=== PATIENT | female | born 1950 | race Caucasian/White ===

== ENCOUNTER 2016-08-07 08:12 | Emergency (ER) | payer MEDICARE ==
[2016-08-07 10:17] LABS: ABSOLUTE BASOPHILS # (AUTO) 0.1 10^3/uL (0.0-0.2); ABSOLUTE EOSINOPHILS # (AUTO) 0.1 10^3/uL (0.0-0.6); ABSOLUTE LYMPHOCYTES (AUTO) 1.3 10^3/uL (0.5-4.7); ABSOLUTE NEUT (AUTO) 9.3 10^3/uL (1.7-8.2); BASOPHILS % (AUTO) 0.6 % (0-2); EOSINOPHILS % (AUTO) 1.2 % (0-6); HEMATOCRIT 45.7 % (36.0-47.0); HEMOGLOBIN 15.9 g/dL (12.0-15.5); LYMPHOCYTES % (AUTO) 11.2 % (13-45); MEAN CORPUSCULAR HEMOGLOBIN 30.3 pg (27.0-33.4); MEAN CORPUSCULAR HGB CONC 34.8 g/dL (32.0-36.0); MEAN CORPUSCULAR VOLUME 87 fl (80-97); MONOCYTES % (AUTO) 8.2 % (3-13); RED BLOOD COUNT 5.25 10^6/uL (3.72-5.28); RED CELL DISTRIBUTION WIDTH 13.2 % (11.5-14.0); SEGMENTED NEUTROPHILS % (AUTO) 78.8 % (42-78); WHITE BLOOD COUNT 11.8 10^3/uL (4.0-10.5)
[2016-08-07 10:37] LABS: ALANINE AMINOTRANSFERASE 31 U/L (9-52); ALBUMIN 4.4 g/dL (3.5-5.0); ALKALINE PHOSPHATASE 62 U/L (38-126); ANION GAP 14 (5-19); ASPARTATE AMINO TRANSFERASE 26 U/L (14-36); BILIRUBIN,TOTAL 0.8 mg/dL (0.2-1.3); BLOOD UREA NITROGEN 10 mg/dL (7-20); CALCIUM 9.8 mg/dL (8.4-10.2); CARBON DIOXIDE 34 mmol/L (22-30); CHLORIDE 91 mmol/L (98-107); CREATINE KINASE 73 U/L (30-135); CREATININE RESULT 0.66 mg/dL (0.52-1.25); GLUCOSE 149 mg/dL (75-110); SODIUM 138.7 mmol/L (137-145); TOTAL PROTEIN 7.3 g/dL (6.3-8.2)
[2016-08-07] MEDS ORDERED: CEFTRIAXONE 1 GM/D5W RTU 50 ML IV ONE (10:37)
[2016-08-07] MEDS ORDERED: AZITHROMYCIN INJ 500 MG VIAL IV ONE (10:37)
--- NOTE | 2016-08-07 10:37 | ER Document Report ---
ED Respiratory Problem - General Chief Complaint: Fever Stated Complaint: FEVER Mode of Arrival: Ambulatory Information source: Patient Notes: This is a 65-year-old female with a history of hypertension who presents to the emergency room with productive cough (thick bojorquez sputum), low-grade fever, right back pain on inspiration and shortness of breath. Patient states she started feeling sick a few days ago with a scratchy throat, losing her voice and a cough predominantly at night associated with low-grade fever. Patient states that she is started to get right thoracic back pain pain more with inspiration and increasing shortness of breath. TRAVEL OUTSIDE OF THE [place] IN LAST 30 DAYS: No - HPI Patient complains to provider of: Chest pain, Short of breath Onset: Just prior to arrival Duration: No: Better, Continuous, Gone now, Intermittent episodes, Worse/ persistent Initiating Event: No: Allergy, Aspiration/Choking, Exertion, Exposure to chemicals, Exposure to dust, Exposure to fumes, Exposure to mold, Exposure to smoke, Out of meds, Sports/exercise, URI, Other Quality of pain: Sharp Severity: None Pain Level: Denies Short of Breath: Mild Cough: Nonproductive Sputum amount: None At home treatment: denies: Bronchodilators, CPAP, Diuretics, Inhaled steroids, Oral steroids, Oxygen, Singulair, Theophylline EMS treatments: No: Bronchodilators, CPAP, Diuretics, Epinephrine, Nitrates, Oxygen, Solumedrol Associated symptoms: Chills, Congestion, Cough, Fever, Sinus pain/pressure Similar symptoms previously: No Recently seen / treated by doctor: No - Related Data Allergies/Adverse Reactions: codeine [Codeine] Adverse Reaction (Intermediate, Verified 08/07/16 08:25) TACHYCARDIA,ANXIOUS Past Medical History - General Information source: Patient - Social History Smoking Status: Unknown if Ever Smoked Cigarette use (# per day): No Chew tobacco use (# tins/day): No Frequency of alcohol use: None Drug Abuse: None Lives with: Family Family History: Reviewed & Not Pertinent Patient has suicidal ideation: No Patient has homicidal ideation: No - Past Medical History Cardiac Medical History: Reports: Hx Hypertension - MEDICATED Denies: Hx Heart Attack Pulmonary Medical History: Denies: Hx Asthma Neurological Medical History: Denies: Hx Cerebrovascular Accident, Hx Seizures Endocrine Medical History: Denies: Hx Diabetes Mellitus Type 1, Hx Diabetes Mellitus Type 2 Renal/ Medical History: Denies: Hx Peritoneal Dialysis GI Medical History: Denies: Hx Hepatitis, Hx Hiatal Hernia, Hx Ulcer Infectious Medical History: Denies: Hx Hepatitis Past Surgical History: Reports: Hx Cholecystectomy, Hx Orthopedic Surgery - herniated cervical disc, Hx Tonsillectomy, Hx Tubal Ligation. Denies: Hx Hysterectomy, Hx Mastectomy, Hx Open Heart Surgery, Hx Pacemaker - Immunizations Immunizations up to date: Yes Hx Diphtheria, Pertussis, Tetanus Vaccination: Yes Review of Systems - Review of Systems Constitutional: See HPI, Chills, Fever EENT: See HPI Cardiovascular: No symptoms reported Respiratory: See HPI Gastrointestinal: No symptoms reported Genitourinary: No symptoms reported Female Genitourinary: No symptoms reported Musculoskeletal: No symptoms reported Skin: No symptoms reported Hematologic/Lymphatic: No symptoms reported Neurological/Psychological: No symptoms reported Physical Exam - Vital signs Vitals: Temp Pulse Resp BP Pulse Ox 99.0 F 88 18 122/59 L 91 L 08/07/16 08:27 08/07/16 08:27 08/07/16 08:27 08/07/16 08:27 08/07/16 08:27 Notes: Physical exam: GENERAL: 65-year-old female, alert and oriented 3, no acute distress. HEAD: Atraumatic, normocephalic. EYES: Pupils equal round and reactive to light, extraocular movements intact, sclera anicteric, conjunctiva are normal. ENT: TMs normal, nares patent, oropharynx clear without exudates. Moist mucous membranes. NECK: Normal range of motion, supple without lymphadenopathy or JVD. LUNGS: Breath sounds clear to auscultation bilaterally and equal. No wheezes rales or rhonchi. HEART: Regular rate and rhythm without murmurs, rubs or gallops. ABDOMEN: Soft, nontender, normoactive bowel sounds. No guarding, no rebound. No masses appreciated. EXTREMITIES: Normal range of motion, no pitting or edema. No clubbing or cyanosis. NEUROLOGICAL: Cranial nerves II through XII grossly intact. Normal speech, normal gait. PSYCH: Normal mood, normal affect. SKIN: Warm, Dry, normal turgor, no rashes or lesions noted. Course - Re-evaluation Re-evalutation: 08/07/16 13:17 Note: Patient does symptomatically feel better after albuterol and Atrovent nebulizer the ER. She does not appear to be in any respiratory distress. I have noticed, that when we have a good waveform with pulse oximetry, her oxygen saturation is in the 96 range on room air. Given her pleuritic type right- sided chest pain, a CTA of the chest was done and it does not show any evidence of pulmonary embolus. Patient does have symptoms suggestive of an infectious process and she was given IV ceftriaxone and IV azithromycin while we were waiting for her workup in the ER. The CT does not show a definitive pneumonia. However, I will place her on antibiotics given that she does appear to have a respiratory infection. - Vital Signs Vital signs: Temp Pulse Resp BP Pulse Ox 99.0 F 88 18 101/71 96 08/07/16 08:27 08/07/16 08:27 08/07/16 13:01 08/07/16 13:01 08/07/16 13:01 - Laboratory Result Diagrams: 08/07/16 09:55 08/07/16 09:55 Laboratory results interpreted by me: 08/07/16 08/07/16 09:55 09:55 WBC 11.8 H Hgb 15.9 H Seg Neutrophils % 78.8 H Lymphocytes % 11.2 L Absolute Neutrophils 9.3 H Potassium 2.8 L* Chloride 91 L Carbon Dioxide 34 H Glucose 149 H - Diagnostic Test Radiology reviewed: Image reviewed, Reports reviewed - I've seen the radiology report and I reviewed the films. The official radiology report is that there is no infiltrates. I believe there may be a developing right lower lobe infiltrate on the x-ray which would be consistent with the patient's symptoms. - EKG Interpretation by Me Rate: Normal Rhythm: NSR - EKG shows normal sinus rhythm with a ventricular rate of 82, no acute ST-T wave changes Discharge - Discharge Clinical Impression: bronchitis with bronchospasm Condition: Stable Disposition: HOME, SELF-CARE Instructions: Bronchitis With Bronchospasm (Wheezing) (OM) Additional Instructions: Recommendations: Rest, drink plenty of fluids, take the antibiotics as prescribed: Start tomorrow , you were given today's dose in the ER. Hold off on the probiotics and fluconazole until after completion of the antibiotics. Mucinex feth-pgg-lehglfz make provide some relief. Use the inhaler: 2 puffs every 4-6 hours for needed (it doesn't seem to be helping, stop it). Follow-up with a primary care doctor: Recommendations: It is recommended to followup with a primary care doctor within the next 2 days. If you do not have a primary care doctor or you are unable to get an apointment during that time, I left the number for some internal medicine physicians that are affiliated with this special care hospital. Dr. Courtney Cabrera [address], [place] [address] [phone] Dr Stout Address: [address] [place] [address] , [place] [address] Return to the emergency room for worsening pain, worsening shortness of breath or any insensate to getting worse. I would rather see you earlier in the emergency room and heavy weight at home. Prescriptions: Azithromycin [Zithromax 250 mg Tablet] 250 mg PO ASDIR PRN #6 tablet PRN Reason:
[2016-08-07] MEDS ORDERED: IPRATROPIUM/ALBUTEROL 0.5-2.5 MG/3 ML AMPUL NEB ONE (10:38)
[2016-08-07 10:39] LABS: POTASSIUM 2.8 mmol/L (3.6-5.0)
[2016-08-07 10:40] LABS: PROTHROMBIN TIME 12.3 SEC (11.4-15.4)
[2016-08-07] MEDS ORDERED: POTASSIUM CHLORIDE 10 MEQ TABLET.SA PO ONE (10:40)
[2016-08-07 10:49] LABS: CREATINE KINASE MB 0.29 ng/mL (<4.55)
[2016-08-07 10:52] LABS: TROPONIN I < 0.012 ng/mL
[2016-08-07] MEDS ORDERED: ALBUTEROL SULFATE HFA (90 MCG/PUFF) 8 GM MDI (1 MDI/ER DISP) IH PRN (13:22)
[2016-08-07 13:25] VITALS: BP 101/71
--- NOTE | 2016-08-08 00:10 | EKG REPORT ---
SEVERITY:- OTHERWISE NORMAL ECG - SINUS RHYTHM BORDERLINE LEFT AXIS DEVIATION : Confirmed by: Thania Matthews 08-Aug-2016 00:09:28
== END 2016-08-07 13:25 | disposition home or self-care (01) ==
LOC: ER 08:12
DX: J40 Bronchitis, not specified as acute or chronic (principal); J98.01 Acute bronchospasm; R50.9 Fever, unspecified; I10 Essential (primary) hypertension; R05 Cough; R06.02 Shortness of breath; R09.89 Other specified symptoms and signs involving the circulatory and respiratory systems; M54.6 Pain in thoracic spine; R07.81 Pleurodynia; J34.89 Other specified disorders of nose and nasal sinuses
CPT/HCPCS: 93005; 94640; 99284; 96365; 96367; 36415; 87040; 87070; 82553; 87880; 82550; 85025; 85610; 80053; 84484; 87804; 71010; 71275; 93010; J0456; A9270 ×2; J0696; J3490; J7620

== ENCOUNTER 2017-02-06 08:52 | Day surgery (SDC) | payer MEDICARE ==
[~2017-02-06 08:52] MED LIST: BUPIVACAINE HCL 0.75% INJ/PF (7.5 MG/1 ML) 10 ML SDV OD PRN; KETOROLAC TROMETHAMINE 0.45% 4 DROP/0.4 ML DROPERETTE OD PRN; LIDOCAINE 4% INJ/PF (40 MG/ML) 5 ML AMPUL OD PRN; TETRACAINE HCL 0.5% OPH SOLN 0.6 ML DROPERETTE OD PRN
[2017-02-06] MEDS ORDERED: EPINEPHRINE INJ/PF 1 MG/1 ML AMPULE ONE (08:58)
[2017-02-06] MEDS ORDERED: CHONDR SU A NA/HYALUR INTRAOC KIT (SURGICARE) ONE (08:58)
[2017-02-06] MEDS: BESIFLOXACIN HCL 0.6% OPH SUSP 5 ML BOTTLE OD PRN ×4 (09:34→10:45)
[2017-02-06] MEDS: CYCLOPENTOLATE 0.2%/PHENYLEPHRINE 1% OPH SOLN 2 ML OD PRN ×3 (09:34→09:54)
[2017-02-06] MEDS: TROPICAMIDE 1% OPH SOLN 3 ML OD PRN ×3 (09:34→09:54)
[2017-02-06] MEDS: LIDOCAINE 3.5% OPH GEL/PF 1 ML/TUBE OD PRN ×2 (09:35→09:54)
[2017-02-06] MEDS ORDERED: FENTANYL CITRATE INJ/PF 100 MCG/2 ML AMPUL ONE (09:56)
[2017-02-06] MEDS ORDERED: ONDANSETRON HCL INJ/PF 4 MG/2 ML SDV ONE (09:56)
[2017-02-06] MEDS ORDERED: MIDAZOLAM 2 MG/2 ML INJ ONE (09:56)
--- NOTE | 2017-02-06 11:38 | [facility] OPERATIVE REPORT E ---
[facility] Operative Report NAME: SHARIF BRITO AGE: 66Y DATE OF SURGERY: 02/06/2017 ROOM: PREOPERATIVE DIAGNOSIS: Cataract, right eye. POSTOPERATIVE DIAGNOSIS: Cataract, right eye. PROCEDURE PERFORMED: Phacoemulsification with posterior chamber intraocular lens, right eye. SURGEON: CAROL CHRISTINE M.D. ANESTHESIA: Topical with MAC. INDICATIONS FOR SURGERY: Difficulty reading small print and difficulty driving at night. Best corrected visual acuity 20/40. DESCRIPTION OF PROCEDURE: The patient was brought to the Operating Room and placed on the operative table. Following tetracaine drops, topical anesthesia was administered. This consisted of instrument wipe pledgets soaked in a solution of 4% Xylocaine mixed with 0.75% Marcaine in a 1:2 ratio. A 2 x 1 cm pledget was placed in the superior fornix. A 1 x 1 cm pledget was placed in the inferior fornix. The eye was patched shut for 5 minutes. The patch was removed. The eye was sterilely prepped and draped in the usual manner. Lid speculum was placed in the eye. The pledgets were removed. 4-0 black silk sutures were placed around the superior and the inferior rectus muscles to be used as traction. A conjunctival peritomy was made at the 10 o'clock position. Hemostasis was obtained with bipolar cautery. A posterior limbal groove was created using a crescent knife and dissected anteriorly towards the cornea. A sharp point blade was used to create a paracentesis site at the 2 o'clock position. A 2.4 mm keratome was used to enter the anterior chamber through the groove. Viscoelastic was injected into the anterior chamber. An anterior capsulotomy was performed using Utrata forceps in a capsulorrhexis fashion. Hydrodissection and hydrodelineation were performed. Phacoemulsification was performed in jbhser-cgf-afbfuhs technique. A total of 51 seconds phaco time was used. Following this, the I/A unit was used to remove residual cortex. Viscoelastic was injected into the capsular bag. Intraocular lens model SN60WF, 19.5 diopters, serial number [id number] was placed in the capsular bag. The I/A unit was used to remove residual viscoelastic. The wound was seen to be watertight under high and low pressure, and no sutures were placed. The intraocular lens was well centered. The pressure was adjusted in the eye to normal pressure. The 4-0 black silk sutures and lid speculum were removed. The eye was shielded after Besivance drops were placed. The patient tolerated the procedure well and was sent to the Recovery Room in good condition. DICTATING PHYSICIAN: CAROL CHRISTINE M.D. [id number] PHY#: [id number] ID: [id number] JOB#: [id number] ACCT: [id number] cc:CAROL CHRISTINE M.D. >
--- NOTE | 2017-02-06 11:43 | [facility] DISCHARGE SUMMARY E ---
[facility] Discharge Summary NAME: SHARIF BRITO AGE: 66Y ADMITTED: 02/06/2017 DISCHARGED: 02/06/2017 HOSPITAL COURSE: The patient is a 66-year-old lady who underwent uneventful cataract extraction with intraocular lens implant, right eye, on 02/06/2017. She will be discharged to home. She is instructed to resume preoperative medications, take Tylenol as needed for discomfort, to keep her eye shielded, to use Besivance, and Ilevro at 3 p.m. and 8 p.m., and to follow up in my office in 1 day. DICTATING PHYSICIAN: CAROL CHRISTINE M.D. [id number] PHY#: [id number] ID: [id number] JOB#: [id number] ACCT: [id number] cc:CAROL CHRISTINE M.D. >
== END 2017-02-06 11:25 | disposition home or self-care (01) ==
LOC: SC 08:52
PROVIDERS: ATTEND Ophthalmology
PROC: 08RJ3JZ Replacement of Right Lens with Synthetic Substitute, Percutaneous Approach (ICD-10-PCS; principal; 2017-02-06 09:30)
DX: H25.813 Combined forms of age-related cataract, bilateral (principal); H16.223 Keratoconjunctivitis sicca, not specified as Sjogren's, bilateral; H02.831 Dermatochalasis of right upper eyelid; H02.834 Dermatochalasis of left upper eyelid; I10 Essential (primary) hypertension; Z79.899 Other long term (current) drug therapy; Z88.5 Allergy status to narcotic agent
CPT/HCPCS: 66984; V2632; J2250; J3490 ×3; A9270 ×2; J0171; J3010; J2405; 142

== ENCOUNTER → 2017-04-17 | Outpatient (CLI) | payer MEDICARE ==
--- NOTE | 2017-04-17 16:02 | WOMENS IMAGING REPORT ---
EXAM DESCRIPTION: BONE DENSITY HIP/SPINE COMPLETED DATE/TIME: 04/17/2017 9:47 am REASON FOR STUDY: OSTEOPOROSIS M81.0 AGE-RELATED OSTEOPOROSIS W/O CURRENT PATHOLOGICAL FRAC COMPARISON: None. TECHNIQUE: Dual-Energy X-ray Absorptiometry (DEXA) of the AP Spine and Hip. LIMITATIONS: None. FINDINGS: LUMBAR SPINE: The bone mineral density (BMD) measured from L1-L4 in the AP projection correlates with a T-score of 1.7, which is normal as defined by the World Health Organization. HIP: The bone mineral density (BMD) measured in the left hip correlates with a T-score of 1.8 in the femor al neck, which is normal as defined by the World Health Organization. IMPRESSION: 1. LUMBAR SPINE: NORMAL. 2. HIP: NORMAL. COMMENT: The World Health Organization defines low BMD as follows: T-score: Normal: Greater than -1.0 Osteopenia: Between -1.0 and -2.5 Osteoporosis: Less than -2.5 without fractures Established osteoporosis: Less than -2.5 with fractures In general, you may wish to consider: Diagnosis Treatment Follow-up DEXA Normal BMD Prevention 2-3 years Osteopenia Prevention/Therapy 1-2 years Osteoporosis Therapy Yearly TECHNICAL DOCUMENTATION: JOB ID: [id number]- All Rights Reserved
== END ==
LOC: WI 09:14
PROVIDERS: ATTEND Physician Assistant
DX: M81.0 Age-related osteoporosis without current pathological fracture (principal)
CPT/HCPCS: 77080

== ENCOUNTER → 2017-05-07 | Outpatient (CLI) | payer MEDICARE ==
--- NOTE | 2017-05-07 14:55 | RADIOLOGY REPORT (SQ) ---
EXAM DESCRIPTION: HIP LEFT AP/LATERAL COMPLETED DATE/TIME: 05/07/2017 12:20 pm REASON FOR STUDY: SCIATICA, LEFT SIDE M54.32 SCIATICA, LEFT SIDE COMPARISON: None. NUMBER OF VIEWS: Two views. TECHNIQUE: AP pelvis and additional frog-leg view of the left hip. LIMITATIONS: None. FINDINGS: MINERALIZATION: Normal. LEFT HIP: No fracture or dislocation. No worrisome bone lesions. RIGHT HIP: No fracture or dislocation. No worrisome bone lesions. PUBIS AND ISCHIUM: No fracture. PELVIS: No fracture. SACRUM: No fracture or dislocation. No worrisome bone lesions. LOWER LUMBAR SPINE: No fracture or dislocation. No worrisome bone lesions. No significant disc disea se. SOFT TISSUES: No findings. OTHER: No other significant finding. IMPRESSION: NEGATIVE STUDY OF THE LEFT HIP AND PELVIS. NO RADIOGRAPHIC EVIDENCE OF ACUTE INJURY. TECHNICAL DOCUMENTATION: JOB ID: [id number] [employer]- All Rights Reserved
== END ==
LOC: OD 11:46
PROVIDERS: ATTEND Physician Assistant
DX: M54.32 Sciatica, left side (principal)

== ENCOUNTER → 2017-09-06 | Outpatient (CLI) | payer MEDICARE | LOC: OD 15:52 | PROVIDERS: ATTEND Otolaryngology | DX: J39.0 Retropharyngeal and parapharyngeal abscess (principal) | CPT/HCPCS: 36415; 82785; 86003 ==

== ENCOUNTER → 2017-10-31 | Outpatient (CLI) | payer MEDICARE ==
--- NOTE | 2017-10-31 11:19 | RADIOLOGY REPORT (SQ) ---
EXAM DESCRIPTION: CT SINUSES FOR ENT COMPLETED DATE/TIME: 10/31/2017 10:05 am REASON FOR STUDY: J01.91 ACUTE RECURRENT SINUSITIS, UNSPECIFIED J01.91 ACUTE RECURRENT SINUSITIS, U NSPECIFIED COMPARISON: None. TECHNIQUE: Noncontrast scanning through the paranasal sinuses using bone algorithm. Reconstructed MPR images reviewed. All images stored on PACS. Images acquired for image guided surgery. All CT scanners at this facility use dose modulation, iterative reconstruction, and/or weight based d osing when appropriate to reduce radiation dose to as low as reasonably achievable (ALARA). [facility]: Dose Right [facility]: CareDose [facility]: Dose Right [facility]: Teradose 4D [facility]: eShares RADIATION DOSE: 46 mGy. FINDINGS: NASAL PASSAGES: Clear. No polyps or masses. OSTEOMEATAL UNITS AND NASOFRONTAL DUCTS: Patent. Small bilateral agger nasi cells. Mucous membrane t hickening left maxillary sinus outlet on coronal images 100 to 108 MAXILLARY SINUSES: Well pneumatized. Mucous membrane thickening along the floor of the right and lef t maxillary sinuses. Right maxillary sinus outlet is patent. Mucous membrane thickening narrows the left maxillary sinus outlet ETHMOID SINUSES: Mild mucous membrane thickening in the bilateral whole ethmoid air cells left greate r than right. There is medial bowing of the left medial orbital wall on coronal images 110 through 1 26. SPHENOID SINUSES: Well-pneumatized and clear. No sphenoethmoid air cells or pneumatized pterygoid rec ess. No pneumatized dorsal sella. FRONTAL SINUSES: Bilateral pneumatization. Right frontal sinus is clear. Circumferential mucous mem brane thickening with air-fluid level left frontal sinus MASTOID AIR CELLS: Clear. ORBITS: Normal and symmetrical. NASAL SEPTUM: Midline. No nasal septal spurs. TEMPOROMANDIBULAR JOINTS: Joint space narrowing with bony spurring TURBINATES: Pneumatized right middle turbinate MUCOPERIOSTEAL THICKENING: No. MUCOCELE: No. OTHER: No other significant findings. IMPRESSION: Inflammatory changes in the paranasal sinuses as above. TECHNICAL DOCUMENTATION: JOB ID: [id number] Quality ID # [id number]: Final reports with documentation of one or more dose reduction techniques (e.g., Au tomated exposure control, adjustment of the mA and/or kV according to patient size, use of iterative reconstruction technique) 2010 [employer]- All Rights Reserved Reading location - IP/workstation name: [email or web address]
== END ==
LOC: RAD 10:48
PROVIDERS: ATTEND Otolaryngology
DX: J01.91 Acute recurrent sinusitis, unspecified (principal)
CPT/HCPCS: 70486

== ENCOUNTER 2018-03-19 06:35 | Day surgery (SDC) | payer MEDICARE ==
--- NOTE | 2018-03-15 19:20 | EKG REPORT ---
SEVERITY:- NORMAL ECG - SINUS RHYTHM : Confirmed by: Clayton Scott MD 15-Mar-2018 19:19:00
[2018-03-19] MEDS ORDERED: ONDANSETRON HCL INJ/PF 4 MG/2 ML SDV ONE (06:36)
[2018-03-19] MEDS ORDERED: CARBOXYMETHYLCELLULOSE SOD 0.5% 0.4 ML DROPERETTE ONE (06:36)
[2018-03-19] MEDS ORDERED: FENTANYL CITRATE INJ/PF 100 MCG/2 ML AMPUL ONE ×3 (06:37→11:52)
[2018-03-19] MEDS ORDERED: MIDAZOLAM 2 MG/2 ML INJ ONE (06:37)
[2018-03-19] MEDS ORDERED: DEXAMETHASONE SOD PHOS INJ 10 MG/1 ML VIAL ONE (06:37)
[2018-03-19] MEDS ORDERED: PROPOFOL INJ 200 MG/20 ML VIAL IV ONE (06:38)
[2018-03-19] MEDS ORDERED: ROCURONIUM BROMIDE INJ 50 MG/5 ML VIAL IV ONE (06:39)
[2018-03-19] MEDS ORDERED: SUCCINYLCHOLINE CHLORIDE INJ 200 MG/10 ML VIAL ONE (06:39)
[2018-03-19] MEDS ORDERED: DIPHENHYDRAMINE HCL 50 MG/ML VIAL ONE (06:40)
[2018-03-19] MEDS ORDERED: DEXMEDETOMIDINE INJ 80 MCG/20 ML VIAL IV ONE (06:40)
[2018-03-19] MEDS ORDERED: SCOPOLAMINE HYDROBROMIDE 1.5 MG PATCH.TD72 TD PRN (07:26)
[2018-03-19] MEDS ORDERED: MINERAL OIL (STERILE) 10 ML VIAL ONE (07:32)
[2018-03-19] MEDS ORDERED: BUPIVACAINE HCL 0.5%-EPI 1:200000 INJ/PF 30 ML VIAL ONE (07:32)
[2018-03-19] MEDS ORDERED: CEFAZOLIN 2 GM/D5W RTU 2 GM/50 ML RTUPB IV PRN (07:32)
[2018-03-19] MEDS ORDERED: OXYMETAZOLINE HCL 0.05% NASAL SPRAY 15 ML BOTTLE ONE (07:33)
[2018-03-19] MEDS ORDERED: BUPIVACAINE HCL 0.5%/EPI 1:200000 INJ 1.8 ML CARTRIDGE ONE ×2 (07:33→08:10)
[2018-03-19] MEDS ORDERED: RINGERS SOLUTION,LACTATED 1,000 ML IV PRN (07:35)
[2018-03-19] MEDS ORDERED: OXYCODONE-ACETAMINOPHEN 5-325 MG TABLET ONE (14:52)
--- NOTE | 2018-04-02 11:25 | [facility] OPERATIVE REPORT E ---
[facility] Operative Report NAME: SHARIF BRITO AGE: 67Y DATE OF SURGERY: 03/19/2018 ROOM: PREOPERATIVE DIAGNOSES: 1. Acute recurrent sinusitis. 2. Chronic rhinosinusitis. 3. Nasal septal deviation, acquired. 4. Nasal deformities, acquired. 5. Chronic nasal dyspnea. 6. Middle turbinate hypertrophy. 7. Bilateral inferior turbinate hypertrophy. 8. Bilateral chronic eustachian tube dysfunction. POSTOPERATIVE DIAGNOSES: 1. Acute recurrent sinusitis. 2. Chronic rhinosinusitis. 3. Nasal septal deviation, acquired. 4. Nasal deformities, acquired. 5. Chronic nasal dyspnea. 6. Middle turbinate hypertrophy. 7. Bilateral inferior turbinate hypertrophy. 8. Bilateral chronic eustachian tube dysfunction. OPERATIONS PERFORMED: 1. Image guidance functional endoscopic sinus surgery via bilateral rigid transnasal surgical endoscopy as follows. 2. Left maxillary antrostomy via left transnasal and intranasal rigid surgical endoscopy. 3. Left total ethmoidectomy (anterior and posterior ethmoidectomy) via left transnasal and intranasal rigid surgical endoscopy. 4. Left transnasal/intranasal frontal sinus sinusotomy via rigid transnasal surgical endoscopy. 5. Left sphenoid balloon Sinuplasty via left rigid transnasal surgical endoscopy. 6. Bilateral eustachian tube balloon plasty via bilateral rigid transnasal surgical endoscopy. 7. Closed/endonasal septorhinoplasty with cartilage grafting of the lower lateral cartilages bilateral. 8. Bilateral inferior turbinate reduction using a submucous resection technique. 9. Bilateral middle turbinate reductions via bilateral transnasal rigid surgical endoscopy. SURGEON: RORO SPARROW D.O. FINDINGS: 1. Nasal septal deviation involving bone and cartilage. 2. Significant/severe bilateral nasal valve collapse/inefficiency. 3. Nasal deformities acquired involving the bony and cartilaginous nasal structures/component. 4. Bilateral inferior turbinate hypertrophy. 5. Bilateral middle turbinate hypertrophy. 6. Left sinonasal polyps were noted during the course of performing the sinus surgery, and there was thick left maxillary sinus contents that were suctioned. 7. The lower lateral cartilages were cephalically sweeping in their position and their over composition was noted to be weakened. INDICATIONS: This is a 67-year-old white female patient who has been seen, evaluated, and followed in the [facility] office. The patient had been initially referred for and she complained of the history of severe acute sinusitis symptoms, being treated with multiple courses of antibiotics. The patient also complained of a longstanding history of nasal dyspnea over the years. She continued to have recurrent sinusitis difficulty with additional courses of antibiotics being required for management. The patient was experiencing severe sinus pain and pressure predominantly affecting the left side of her head and sinuses. The patient underwent clinic endoscopy and CT sinus imaging. After extensive discussion with the patient, recommendation and plan was made to proceed with left-sided sinus surgery to address the maxillary, total ethmoid distribution (anterior and posterior ethmoids), sphenoid sinus, frontal sinus, and eustachian tube complexes. In addition, to address the nasal dysfunction was to perform endonasal/closed septorhinoplasty with cartilaginous grafting and inferior and middle turbinate reduction. The patient voiced an understanding of all that was discussed and desired to proceed. The procedures and all of their risks and complications were all discussed in detail with the patient. She voiced an understanding of the described surgical plan, agreed to proceed, and consent was obtained. DESCRIPTION OF PROCEDURE: The patient was taken to the main operating room and was placed on the operating room table in the supine position. Appropriate monitors were placed. Using mask and IV access, general anesthesia was induced. The patient was then transorally intubated without difficulty. The patient was positioned and prepped for nasal and sinus surgery. The image guidance system was set up and tested appropriately before beginning the case. The patient underwent a nasal examination with injection of local anesthetic with epinephrine to establish a nasal block. Two Afrin-soaked neuro patties were placed per nasal passage. At this point, the patient was prepped and draped in the usual fashion for nasal and sinus surgery. The Afrin-soaked neuro patties were next removed. The patient underwent a hemitransfixion incision with elevation of the mucoperichondrial and mucoperiosteal flaps without difficulty. The bony cartilaginous junction was identified and divided and the most deviated portions of septal cartilage and bone were removed. There was also a maxillary prep/septal spur that was removed without difficulty using a V-chisel. There was a greater than 1.5 x 1.5 cm cartilaginous L-strut that was also preserved. At this point, the turbinate bipolar wand was used to make 2 passes in each inferior turbinate followed by use of a Babak elevator to outfracture each inferior turbinate. The turbinate microdebrider system at a setting of 1500 RPM was also used to perform submucous resection on each side without difficulty. At this point, the functional endoscopic sinus surgery was addressed in the following manner. There was transnasal rigid surgical endoscopy used throughout the case. Along with surgical sinus instrumentation, the balloon Sinuplasty systems, the microdebrider system at a setting of 3000 RPM, and Propel steroid-eluting stents, the sinus surgery portion of the case was addressed in the following fashion: At this point, the eustachian tube balloon plasty was performed on each side via rigid transnasal surgical endoscopy with the balloon being inserted into each eustachian tube distribution and the balloon was inflated to 12 atmospheres and held in place for 2 minutes per side. This balloon system was next withdrawn without difficulty. Under direct rigid surgical endoscopic visualization, the left maxillary antrostomy and total ethmoidectomies were performed without difficulty. The left frontal sinusotomy was performed without difficulty as well in a transnasal/intranasal fashion. Once these procedures were complete, there was one Propel contour stent placed into the frontal sinus distribution and one Propel ethmoid stent placed in the ethmoid distribution. At this point, there were 2 Afrin-soaked neuro patties placed per nasal passage. At this point, the image guidance sphenoid balloon system was introduced to perform the intranasal/transnasal balloon sphenoidotomy/dilation with the balloon inflated to 12 atmospheres in 2 different positions. At this point, the rigid endoscope and sphenoid balloon system was withdrawn from the patient's nose. Surgical sinus instrumentation was also used under direct visualization to perform a left middle turbinate reduction and a right middle turbinate reduction was performed as well under direct visualization with the use of the Shruti clamp to infracture the middle turbinate component. At this point, the rhinoplasty portion of the case was addressed in the following manner. There were modified marginal incisions that were performed with elevation of the skin soft tissue envelope to create precise pockets for extended alar back grafts. The lower lateral cartilages were also dissected free from the surrounding tissue. These cartilages were noted to be cephalically sweeping and weakened in their overall composition. At this point, cartilage that had been previously removed was fashioned into extended alar back grafts and contoured. These grafts were overlapped with the existing components of the lower lateral cartilages and fixed in place with 6-0 Prolene suture in multiple locations. This construct was then inserted into a more caudal position in a precise pocket. This complex was also fixed in position with [id number] 5-0 Prolene suture with Telfa patties overlying the internal and external tissue components. There were 2 stabilization sutures placed per side. Once complete, the nose was thoroughly suctioned and there was reasonable hemostasis noted. Cartilage that had been previously removed was placed back . END OF DICTATION DICTATING PHYSICIAN: RORO SPARROW D.O. [id number] PHY#: [id number] ID: [id number] JOB#: [id number] ACCT: [id number] cc:RORO SPARROW D.O. >
== END 2018-03-19 15:36 | disposition home or self-care (01) ==
LOC: SC 06:35
PROVIDERS: ATTEND Otolaryngology
DX: H69.83 Other specified disorders of Eustachian tube, bilateral (principal); J32.8 Other chronic sinusitis; J30.9 Allergic rhinitis, unspecified; J34.89 Other specified disorders of nose and nasal sinuses; R06.09 Other forms of dyspnea; J34.3 Hypertrophy of nasal turbinates; J32.9 Chronic sinusitis, unspecified; I10 Essential (primary) hypertension; E66.9 Obesity, unspecified; Z85.828 Personal history of other malignant neoplasm of skin; Z68.39 Body mass index [BMI] 39.0-39.9, adult; Z88.5 Allergy status to narcotic agent; Z79.899 Other long term (current) drug therapy
CPT/HCPCS: 30140; 30420; 31255; 31256; 31276; 31297; C9745; 160; 93005; 93010; J0330; J0690; J1100; J1200; J2250; J2405; J2704; J3010; J3490

== ENCOUNTER 2019-07-22 10:17 | Day surgery (SDC) | payer MEDICARE ==
[~2019-07-22 10:17] MED LIST changes: +BALANCED SALT IRRIG SOLN COMB2 15 ML BOTTLE ONE; -BUPIVACAINE HCL 0.75% INJ/PF (7.5 MG/1 ML) 10 ML SDV OD PRN; -KETOROLAC TROMETHAMINE 0.45% 4 DROP/0.4 ML DROPERETTE OD PRN; -LIDOCAINE 4% INJ/PF (40 MG/ML) 5 ML AMPUL OD PRN; +POVIDONE-IODINE 5% OPH PREP SOLN 30 ML ONE; -TETRACAINE HCL 0.5% OPH SOLN 0.6 ML DROPERETTE OD PRN; +TETRACAINE HCL 0.5% OPH SOLN 4 ML ONE
[2019-07-22] MEDS ORDERED: FENTANYL CITRATE INJ/PF 100 MCG/2 ML AMPUL ONE ×2 (10:26→11:48)
[2019-07-22] MEDS ORDERED: MIDAZOLAM 2 MG/2 ML INJ ONE ×2 (10:26→11:48)
[2019-07-22] MEDS ORDERED: ONDANSETRON HCL INJ/PF 4 MG/2 ML SDV ONE (10:26)
[2019-07-22] MEDS ORDERED: PROPOFOL INJ 200 MG/20 ML VIAL IV ONE ×2 (10:27→11:48)
[2019-07-22] MEDS ORDERED: LIDOCAINE 2% INJ-PF (100 MG/5 ML) SYRINGE ONE (10:27)
[2019-07-22] MEDS: LIDOCAINE 2%/EPINEPHRINE INJ 20 ML VIAL ONE ×2 (12:32)
[2019-07-22] MEDS: BUPIVACAINE HCL 0.75% INJ/PF (7.5 MG/1 ML) 10 ML SDV ONE ×2 (12:32)
[2019-07-22] MEDS: NORMAL SALINE INJ/PF 0.9% 10 ML SDV ONE ×2 (12:40)
[2019-07-22] MEDS: TRANEXAMIC ACID INJ/PF 1,000 MG/10 ML SDV ONE ×2 (12:40)
[2019-07-22] MEDS: NEO/POLYMYX B SULF/DEXAMETH OPH OINTMENT 3.5 GM ONE ×2 (13:09)
--- NOTE | 2019-07-22 13:47 | Operative Report ---
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 Tetracaine drops were placed in the eyes. Attention was directed to both upper lids where the upper lid crease was marked and 0.3 mm forceps were used to estimate the excess upper eyelid skin to be excised. This was marked in an elliptical fashion. Local anesthesia was administered. This consisted of 2% Xylocaine with epinephrine mixed with 0.75% Marcaine. Approximately 2.5 mL's of this was used to infiltrate both upper eyelids in the previous marked areas and the local anesthetic was diffuse with a Q-tip. Attention was directed to the left upper lid where the elliptical of skin was removed. Hemostasis was obtained with bipolar cautery. The orbital septum was opened and prolapse retroseptal fat was grasped with a hemostat, cut and cauterized. Thrombin was placed on the incision. Identical procedure was performed on the right upper lid. Wound closure was completed with 3 interrupted 6-0 silk sutures, equally spaced through both upper lids, taking a deep bite of the fascia. This was followed by a running 6-0 nylon suture. There was full closure of the lids and good hemostasis at the end of the surgery. Maxitrol ointment was placed on both upper lids. Patient tolerated procedure well and sent to recovery room and in good condition.
== END 2019-07-22 14:01 | disposition home or self-care (01) ==
LOC: SC 10:17
PROVIDERS: ATTEND Ophthalmology
DX: H02.831 Dermatochalasis of right upper eyelid (principal); H02.834 Dermatochalasis of left upper eyelid; H53.453 Other localized visual field defect, bilateral; I10 Essential (primary) hypertension; Z79.899 Other long term (current) drug therapy; Z85.42 Personal history of malignant neoplasm of other parts of uterus; Z88.5 Allergy status to narcotic agent
CPT/HCPCS: 00103; 15823; J2250; J3490 ×7; J3010; A9270; J2704; 103; J2001; J2405